=== PATIENT | female | born 1970 | race African-American/Black ===

== ENCOUNTER 2017-11-04 17:14 | Emergency (ER) | payer OTHER ==
[~2017-11-04] VITALS: Ht 170.2 cm; Wt 90.7 kg
[2017-11-04] MEDS ORDERED: IBUPROFEN600 MG ORAL (17:43)
[2017-11-04] MEDS ORDERED: ACETAMINOPHEN-1 EAC1 ORAL (17:43)
[2017-11-04 18:32] VITALS: BP 125/85
[2017-11-04 19:03] VITALS: BP 145/67
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
--- NOTE | 2017-11-05 08:24 | Diagnostic Imaging Report ---
Indication: Pain Technique: XRAY Elbow Min 3v R Comparison: None Findings: There is no acute fracture or dislocation. No elbow joint effusion is identified. No focal soft tissue defect is appreciated. No radiopaque foreign body is seen. Impression: No acute fracture or dislocation. No evidence to suggest elbow joint effusion.
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
== END 2017-11-04 18:33 | disposition home or self-care (01) ==
LOC: EMR 18:00
DX: S40.021A Contusion of right upper arm, initial encounter (principal); Y04.8XXA Assault by other bodily force, initial encounter; Y92.199 Unspecified place in other specified residential institution as the place of occurrence of the external cause; Y99.0 Civilian activity done for income or pay; Z88.6 Allergy status to analgesic agent
CPT/HCPCS: 99283